=== PATIENT | male | born 1980 | race Caucasian/White ===

== ENCOUNTER 2022-07-12 21:49 | Emergency (ER) | payer MEDICAID ==
[~2022-07-12] VITALS: Ht 175.3 cm; Wt 86.2 kg
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
[2022-07-12] MEDS ORDERED: NAPR-1164 PO (22:37)
[2022-07-12] MEDS ORDERED: CYCL5TAB PO (22:37)
[2022-07-12 22:46] VITALS: BP 128/64
== END 2022-07-12 22:47 | disposition home or self-care (01) ==
LOC: ER 22:05
DX: S33.5XXA Sprain of ligaments of lumbar spine, initial encounter (principal); V89.2XXA Person injured in unspecified motor-vehicle accident, traffic, initial encounter; Y93.89 Activity, other specified; Y92.89 Other specified places as the place of occurrence of the external cause; Y99.8 Other external cause status